=== PATIENT | male | born 1995 | race Caucasian/White ===

== ENCOUNTER 2023-10-31 11:19 | Emergency (ER) | payer BC, OTHER, SELFPAY ==
[2023-10-31] VITALS (11 sets, daily range): BP systolic 126–162; BP diastolic 81–103; PULSE 62–64; TEMP 37; O2SAT 96–99; BMI 30.3
--- NOTE | 2023-10-31 11:32 | ED.CHESTPAI1 ---
HPI - Chest Pain General Chief Complaint: Chest Pain Stated Complaint: DIZZINESS/ CHEST PAIN Time Seen by Provider: 10/31/23 11:32 Source: patient Mode of arrival: walk-in History of Present Illness HPI narrative: This patient is here for discomfort. Symptoms started today. He has not had previous cardiovascular disease. He has no nausea vomiting or diaphoresis. An EKG was done immediately on arrival here and does not show any gross abnormalities. He is is not on any medications. He has not had previous heart murmurs or heart irregularity palpitations or syncopal episodes. He does not have any discomfort rating to his neck jaw or arms. There is no tearing or ripping sensation. He denies any history of hypertension or diabetes. Denies smoking use but he says he does vape and occasionally uses marijuana as well. Related Data Allergies Allergy/AdvReac Type Severity Reaction Status Date / Time No Known Drug Allergies Allergy Verified 10/31/23 11:26 Exam Narrative Exam Narrative: Awake alert healthy somewhat anxious and paranoid and overall evaluation. Blood pressure slightly up as noted. His pulse oximetry is 99% on room air. He has no respiratory distress no cough or congestion he is not moving about on the cart. Skin is warm and dry the mucous membranes are moist and pink there is no evidence of anemia or scleral icterus. Chest examination shows lungs to be completely clear bilaterally with no wheeze rales or rhonchi there is no pleural or pericardial rub. Heart sounds are normal with no clicks rubs gallops or murmur. He has no discomfort in the extremities legs not swollen there is no edema , cellulitis swelling or tenderness. Joints are otherwise unremarkable. Abdomen is benign he has no abdominal discomfort. Constitutional Vital Signs, click to edit/add: Last Vital Signs Temp 98.6 F 10/31/23 11:23 Pulse 62 10/31/23 11:23 Resp 18 10/31/23 11:23 BP 158/100 H 10/31/23 11:23 Pulse Ox 99 10/31/23 11:23 O2 Del Method Room Air 10/31/23 11:23 Course Vital Signs Vital signs: Vital Signs Temperature 98.6 F 10/31/23 11:23 Pulse Rate 62 10/31/23 11:23 Respiratory Rate 18 10/31/23 11:23 Blood Pressure 158/100 H 10/31/23 11:23 Pulse Oximetry 99 10/31/23 11:23 Oxygen Delivery Method Room Air 10/31/23 11:23 Temperature 98.6 F 10/31/23 11:23 Pulse Rate 62 10/31/23 11:23 Respiratory Rate 18 10/31/23 11:23 Blood Pressure 158/100 H 10/31/23 11:23 Pulse Oximetry 99 10/31/23 11:23 Oxygen Delivery Method Room Air 10/31/23 11:23 MDM - Chest Pain MDM Narrative Medical decision making narrative: This is an otherwise healthy 27-year-old with social history as above. His chest x-ray EKG cardiac enzymes and blood work were normal. His clinical examination was normal. I believe is at low risk for cardiovascular event. I will place him on NSAIDs and he is advised to follow-up with a local physician if he stays here otherwise clinic when he returns to his home community Discharge Plan Discharge Stand Alone Forms: Portal Instructions Chief Complaint: Chest Pain Clinical Impression: Atypical chest pain Patient Disposition: Home, Self-Care Time of Disposition Decision: 12:47 Print Language: [place] Citizen Additional Instructions: May use [id number] NSAIDs for 2 or 3 days. Follow-up with your primary care doctor or local clinic here in [place] as needed
--- NOTE | 2023-10-31 11:34 | ECG_ITS ---
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
--- NOTE | 2023-10-31 11:34 | XR_ITS ---
The [address] [address] Patient Name: YEELNA SHAW MRN: [id number] date: 1995 Sex: M Assigned Patient Location: ER Current Patient Location: ER Accession/Order Number: [id number] Exam Date: 10/31/2023 11:50 Report Date: 10/31/2023 12:21 At the request of: BRIDGETT LEVIN Procedure: XR chest 1V EXAM: XR chest 1V HISTORY: . Chest pain . COMPARISON: 02/12/2020 TECHNIQUE: Single view of the chest. FINDINGS: Heart and vascularity are unremarkable. Lungs are free of focal infiltrates. Grossly no bony abnormality is appreciated. EKG leads overlie the chest. XR/XR chest 1V Impression: No acute heart or lung disease identified. Electronically authenticated by: JANELL OCASIO Date: 10/31/2023 12:21
[2023-10-31 11:59] LABS: Basophils Percent Auto 0.2 % (0.2-2.0); Eosinophils Absolute Auto 0.1 10^3/uL (0.0-0.7); Eosinophils Percent Auto 1.3 % (0.9-7.0); Hematocrit 44.6 % (42.0-54.0); Hemoglobin 14.9 g/dL (14.0-18.0); Lymphocytes Absolute Auto 1.4 10^3/uL (1.2-3.8); Lymphocytes Percent Auto 27.2 % (20.5-60.0); Mean Corpuscular HGB Conc 33.4 g/dL (29.9-35.2); Mean Corpuscular Hemoglobin 31.2 pg (25.9-34.0); Mean Corpuscular Volume 93.5 fL (80.0-94.0); Monocytes Absolute Auto 0.3 10^3/uL (0.3-0.8); Monocytes Percent Auto 5.7 % (1.7-12.0); Neutrophils Absolute Auto 3.4 10^3/uL (1.4-6.5); Neutrophils Percent Auto 65.6 % (43.0-75.0); Platelet Count 234 10^3/uL (150-450); Red Blood Count 4.77 10^6/uL (4.70-6.10); Red Cell Distribution Width 12.3 % (11.0-15.0); White Blood Count 5.2 10^3/uL (4.0-11.0)
[2023-10-31 12:16] LABS: Anion Gap 10.7; BUN Creatinine Ratio 15.8; Carbon Dioxide 28.8 mmol/L (21.0-32.0); Chloride 103 mmol/L (98-107); Estimated GFR (African America >60 (>=60); Estimated GFR (Non-African Ame >60 (>=60); Glucose 102 mg/dL (74-106); Potassium 3.5 mmol/L (3.5-5.1); Sodium 139 mmol/L (136-145); Troponin I High Sensitivity 6.6 pg/mL (4.0-76.1)
== END 2023-10-31 12:59 | disposition home or self-care (01) ==
PROVIDERS: Emergency Provider Emergency Medicine Emergency Medical Services
DX: R07.89 Other chest pain (principal); F17.290 Nicotine dependence, other tobacco product, uncomplicated; F12.90 Cannabis use, unspecified, uncomplicated
CPT/HCPCS: 36415; 71045; 80048; 84484; 85025; 93005; 99285